=== PATIENT | female | born 1960 | race Caucasian/White ===

== ENCOUNTER → 2017-01-09 | Outpatient (REF) ==
[2013-03-09 19:50] VITALS: BP 152/89
[~2017-01-09] MED LIST: NO HOME MEDICATIONS
== END ==
LOC: LAB 08:16
DX: Z00.00 Encounter for general adult medical examination without abnormal findings (principal)

== ENCOUNTER → 2017-01-24 | Outpatient (REF) ==
[2013-03-09 19:50] VITALS: BP 152/89
== END ==
LOC: LAB 15:11
DX: Z11.59 Encounter for screening for other viral diseases (principal); I10 Essential (primary) hypertension

== ENCOUNTER → 2017-02-04 | Outpatient (CLI) | payer OTHER ==
[2013-03-09 19:50] VITALS: BP 152/89
== END ==
LOC: MAMMO 14:27
DX: Z12.31 Encounter for screening mammogram for malignant neoplasm of breast (principal); R92.2 Inconclusive mammogram
CPT/HCPCS: G0202

== ENCOUNTER → 2017-02-10 | Outpatient (CLI) | payer OTHER ==
[2013-03-09 19:50] VITALS: BP 152/89
== END ==
LOC: MAMMO 06:44
DX: N64.89 Other specified disorders of breast (principal)

== ENCOUNTER → 2017-08-07 | Day surgery (SDC) | payer OTHER ==
[2013-03-09 19:50] VITALS: BP 152/89
== END ==
LOC: MSO 07:29
DX: Z12.11 Encounter for screening for malignant neoplasm of colon (principal); I10 Essential (primary) hypertension
CPT/HCPCS: 00810; A4649; J2704; J7120

== ENCOUNTER → 2018-02-26 | Outpatient (CLI) | payer OTHER ==
[2013-03-09 19:50] VITALS: BP 152/89
== END ==
LOC: MAMMO 08:12
DX: Z12.31 Encounter for screening mammogram for malignant neoplasm of breast (principal)

== ENCOUNTER → 2019-03-04 | Outpatient (CLI) | payer OTHER ==
[2013-03-09 19:50] VITALS: BP 152/89
== END ==
LOC: MAMMO 08:20
DX: Z12.31 Encounter for screening mammogram for malignant neoplasm of breast (principal)

== ENCOUNTER → 2020-03-08 | Outpatient (CLI) | payer OTHER ==
[2013-03-09 19:50] VITALS: BP 152/89
== END ==
LOC: MAMMO 15:10
DX: Z12.31 Encounter for screening mammogram for malignant neoplasm of breast (principal)

== ENCOUNTER → 2021-10-24 | Outpatient (CLI) | payer OTHER | LOC: MAMMO 08:45 | DX: Z12.31 Encounter for screening mammogram for malignant neoplasm of breast (principal) ==

== ENCOUNTER → 2023-07-14 | Outpatient (CLI) | payer BC | LOC: MAMMO 14:49 | DX: Z12.31 Encounter for screening mammogram for malignant neoplasm of breast (principal) ==

== ENCOUNTER → 2024-09-13 | Outpatient (CLI) | payer BC | LOC: MAMMO 08:00 | DX: Z12.31 Encounter for screening mammogram for malignant neoplasm of breast (principal) ==